=== PATIENT | male | born 1935 | race Caucasian/White ===

== ENCOUNTER 2023-10-27 11:02 | Emergency (ER) | payer MEDICARE, OTHER ==
[~2023-10-27] VITALS: Ht 170.2 cm; Wt 90.7 kg
[2023-10-27] MEDS ORDERED: SENN8.6T19 PO (12:03)
[2023-10-27] MEDS ORDERED: MULT-213 PO (12:03)
[2023-10-27] MEDS ORDERED: POLY17PO4 PO (12:03)
[2023-10-27] MEDS ORDERED: FINA5TAB11 PO (12:03)
[2023-10-27] MEDS ORDERED: FLUT1DIS3 IH (12:03)
[2023-10-27] MEDS ORDERED: ACET-868 PO (12:03)
[2023-10-27] MEDS ORDERED: ALEN70TA80 PO (12:03)
[2023-10-27] MEDS ORDERED: MAGN400O6 PO (12:03)
[2023-10-27] MEDS ORDERED: AMLO10TA4 PO (12:03)
[2023-10-27] MEDS ORDERED: DICL100G26 TP (12:03)
[2023-10-27] MEDS ORDERED: CALC-494 PO (12:03)
[2023-10-27] MEDS ORDERED: CLOP75TA15 PO (12:03)
[2023-10-27] MEDS ORDERED: DULO30CA2 PO (12:03)
[2023-10-27] MEDS ORDERED: ASCO-352 PO (12:03)
[2023-10-27] MEDS ORDERED: MELA5TAB PO (12:03)
[2023-10-27] MEDS ORDERED: METF-440 PO (12:03)
[2023-10-27] MEDS ORDERED: CHOL200026 PO (12:03)
[2023-10-27] MEDS ORDERED: TAMS-12 PO (12:03)
[2023-10-27] MEDS ORDERED: NA P133E RC (12:03)
[2023-10-27] MEDS ORDERED: INSU100V39 SQ (12:03)
[2023-10-27] MEDS ORDERED: ROSU20TA2 PO (12:03)
[2023-10-27] MEDS ORDERED: BENZ200C53 PO (12:03)
[2023-10-27] MEDS ORDERED: VITA1TAB56 PO (12:03)
[2023-10-27] MEDS ORDERED: GABA300C PO (12:03)
[2023-10-27] MEDS ORDERED: DOCU100T2 PO (12:03)
[2023-10-27] MEDS ORDERED: LOSA50TA3 PO (12:03)
[2023-10-27] MEDS ORDERED: ALBU6.7H9 IH (12:03)
[2023-10-27 12:28] LABS: ALANINE AMINOTRANSFERASE 10 U/L (12-78); ALBUMIN 3.1 g/dL (3.4-5.0); ALKALINE PHOSPHATASE 56 U/L (46-116); ASPARTATE AMINOTRANSFERASE 10 U/L (15-37); BILIRUBIN,DIRECT 0.2 mg/dL (0.0-0.2); BILIRUBIN,TOTAL 0.7 mg/dL (0.2-1.0); CALCIUM, SERUM 8.7 mg/dL (8.5-10.1); CARBON DIOXIDE 27 mmol/L (21-32); CHLORIDE 95 mmol/L (98-107); CREATININE 0.8 mg/dL (0.6-1.3); GLUCOSE 161 mg/dL (74-106); LIPASE 25 U/L (16-77); NT-PRO BNP 135 pg/mL (0-125); POTASSIUM 4.2 mmol/L (3.5-5.1); SODIUM SERUM 131 mmol/L (136-145); UREA NITROGEN, BLOOD 17 mg/dL (7-18)
[2023-10-27] MEDS ORDERED: IPRATROPIUM NEB FS 0.5 MG/2.5 ML AMPUL.NEB ONE (12:34)
[2023-10-27] MEDS ORDERED: ALBUTEROL FS 2.5 MG/3 ML VIAL.NEB ONE (12:34)
[2023-10-27 12:41] VITALS: O2SAT 97
[2023-10-27] MEDS: ALBUTEROL FS 2.5 MG/3 ML VIAL.NEB CONTNEB ONE (12:41)
[2023-10-27] MEDS: IPRATROPIUM NEB FS 0.5 MG/2.5 ML AMPUL.NEB NEB ONE (12:41)
[2023-10-27 12:43] LABS: BASOPHILS % (AUTO) 0.5 % (0.0-2.0); EOSINOPHILS # (AUTO) 0.1 K/uL (0.0-0.7); EOSINOPHILS % (AUTO) 1.7 % (0.0-6.0); HEMATOCRIT 41 % (39-51); HEMOGLOBIN 13.9 g/dL (13.5-17.5); LYMPHOCYTES # (AUTO) 0.9 K/uL (0.8-4.8); LYMPHOCYTES % (AUTO) 15.6 % (20.0-44.0); MEAN CORPUSCULAR HEMOGLOBIN 30 PG (26.0-33.0); MEAN CORPUSCULAR HGB CONC 34 g/dl (31.0-36.0); MEAN CORPUSCULAR VOLUME 90 fL (80-96); MONOCYTES # (AUTO) 0.8 K/uL (0.1-1.30); MONOCYTES % (AUTO) 14.1 % (2.0-12.0); NEUTROPHILS # (AUTO) 3.8 K/uL (1.8-8.9); NEUTROPHILS % (AUTO) 68.1 % (43.0-81.0); PLATELET COUNT (AUTO) 119 K/uL (150-450); RED BLOOD CELL COUNT(AUTO) 4.59 MIL/uL (4.5-6.0); RED CELL DISTRIBUTION WIDTH 13.3 % (11.5-15.0); WHITE BLOOD COUNT (AUTO) 5.5 K/uL (4.3-11.0)
[2023-10-27 13:00] VITALS: O2SAT 97
[2023-10-27 13:25] VITALS: O2SAT 91
[2023-10-27] MEDS ORDERED: methylPREDNISolone SOD SUCC 125 MG/2ML VIAL ONE (13:35)
[2023-10-27] MEDS ORDERED: Magnesium 1GM/D5W 100ML PREMIX 100 ML IV ONE (13:35)
[2023-10-27] MEDS: Magnesium 1GM/D5W 100ML PREMIX 200 ML IV ONE (13:42)
[2023-10-27] MEDS: methylPREDNISolone SOD SUCC 125 MG/2ML VIAL IV ONE (13:44)
[2023-10-27 16:15] VITALS: O2SAT 92
[2023-10-27 17:14] LABS: APPEARANCE,URINE Clear (CLEAR); BILIRUBIN,URINE Negative (NEGATIVE); BLOOD, URINE Trace-lysed Ery/uL (NEGATIVE); COLOR,URINE YELLOW (YELLOW); KETONES,URINE Negative (NEGATIVE); LEUKOCYTE ESTERASE ,URINE Negative (NEGATIVE); NITRITE, URINE Negative (NEGATIVE); PH,URINE 6.5 (5.0-8.0); PROTEIN,URINE 30 mg/dl (NEGATIVE); UGLUCOSE Negative (NEGATIVE); UROBILINOGEN,URINE 0.2 EU/dL (0.2)
[2023-10-27 17:16] LABS: ADD URINE CULTURE NO; BACTERIA,URINE Few /HPF (None Seen); SQUAMOUS EPITHELIAL CELL,UR Rare /HPF (None Seen); WBC,URINE 0-2 /HPF (0-3)
[2023-10-27 17:38] VITALS: BP 133/67; TEMP 98.8; O2SAT 92
== END 2023-10-27 17:46 ==
LOC: ER 11:09
DX: J44.1 Chronic obstructive pulmonary disease with (acute) exacerbation (principal); I10 Essential (primary) hypertension; K21.9 Gastro-esophageal reflux disease without esophagitis; E11.9 Type 2 diabetes mellitus without complications; F32.A Depression, unspecified; Z86.73 Personal history of transient ischemic attack (TIA), and cerebral infarction without residual deficits; Z88.8 Allergy status to other drugs, medicaments and biological substances; Z20.822 Contact with and (suspected) exposure to COVID-19
CPT/HCPCS: 99291; 96365; 96375; 87426; 93005; 71045; 85025; 80048; 87086; 83690; 80076; 83735; 81001; 36415; 84484; 83880; 94640; J2919; J3475